=== PATIENT | male | born 1935 | race Caucasian/White ===

== ENCOUNTER → 2016-11-04 | Outpatient (CLI) | payer MEDICARE, OTHER ==
[~2016-11-04] MED LIST: ASPI1TAB69 PO; ASPI81TA82 PO; CELE200C PO; HYDR-3516 PO; HYZA100T6 PO; IRON28TA2 PO; LOSA100T2 PO; LOVA40TA PO; MAGN400T2 PO; MEVA40TA PO; REST30CA PO; TEMA30CA PO
[2016-11-04 09:26] LABS: HEMATOCRIT 41.7 % (39.0-51.0); MEAN CELL VOLUME 94.7 FL (80.0-100.0); MEAN CORPUSCULAR HEMOGLOBIN 32.1 PG (27.0-34.0); MEAN CORPUSCULAR HGB CONC 33.9 % (32.0-36.0); PLATELET COUNT 200 TH/MM3 (150-450); RED BLOOD COUNT 4.41 MIL/MM3 (4.50-5.90); RED CELL DISTRIBUTION WIDTH 12.8 % (11.6-17.2); REVIEW FLAG FINAL; WHITE BLOOD COUNT 5.6 TH/MM3 (4.0-11.0)
[2016-11-04 09:58] LABS: ALKALINE PHOSPHATASE 62 U/L (45-117); ALT (GPT) 30 U/L (12-78); ANION GAP 7 MEQ/L (5-15); AST (GOT) 21 U/L (15-37); BICARBONATE 31.3 MEQ/L (21.0-32.0); BLOOD UREA NITROGEN 19 MG/DL (7-18); CHLORIDE 103 MEQ/L (98-107); GLOMERULAR FILTRATION RATE 68 ML/MIN (>89); GLUCOSE,FASTING 103 MG/DL (74-99); HDL CHOLESTEROL 56.2 MG/DL (40.0-60.0); LDL CHOLESTEROL 62 MG/DL (0-99); LDL CHOLESTEROL DIRECT 79 MG/DL (0-99); POTASSIUM 4.4 MEQ/L (3.5-5.1); SODIUM (NA) 141 MEQ/L (136-145); TOTAL BILIRUBIN ADULT 0.7 MG/DL (0.2-1.0)
[2016-11-04 10:32] LABS: HEMOGLOBIN A1b 1.7 %; HEMOGLOBIN Ao 85.1 %; HEMOGLOBIN P3 3.8 %
== END ==
LOC: PLAB 06:42
PROVIDERS: ATTEND Family Medicine
DX: R53.83 Other fatigue (principal); E78.2 Mixed hyperlipidemia; I10 Essential (primary) hypertension; R73.01 Impaired fasting glucose
CPT/HCPCS: 36415; 80053; 80061; 83036; 83721; 84443; 85027

== ENCOUNTER 2016-12-15 09:19 | Emergency (ER) | payer MEDICARE, OTHER ==
[~2016-12-15] VITALS: Ht 172.7 cm; Wt 99.3 kg
[~2016-12-15 09:19] MED LIST changes: -ASPI1TAB69 PO; -CELE200C PO; -HYDR-3516 PO; -LOSA100T2 PO; -LOVA40TA PO; -MAGN400T2 PO; -TEMA30CA PO
[2016-12-15 09:28] VITALS: BP 138/70; PULSE 54; RESP 18; TEMP 97.5; O2SAT 98
[2016-12-15] MEDS ORDERED: TEMA30CA PO (09:42)
[2016-12-15] MEDS ORDERED: ASPI1TAB69 PO (09:42)
[2016-12-15] MEDS ORDERED: LOSA100T2 PO (09:42)
[2016-12-15] MEDS ORDERED: LOVA40TA PO (09:42)
[2016-12-15] MEDS ORDERED: MAGN400T2 PO (09:43)
--- NOTE | 2016-12-15 09:49 | PD ---
HPI Chief Complaint: Musculoskeletal Complaint Time Seen by Provider: 09:37 Travel History International Travel<30 days: No Contact w/Intl Traveler<30days: No Traveled to known affect area: No History of Present Illness HPI This 81-year-old male is complaining of pain in his left foot. He has been having the pain for several days and it seems to be getting worse. He says that last week he did a lot of work on a ladder and he is also complaining a lot of golf last few days. Yesterday he did not play golf because of the pain in his foot. He has not been on any antibiotics recently. He does have a history of a left knee replacement several years ago. 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 There is no history of trauma PFSH Past Medical History Hx Anticoagulant Therapy: Yes (ASA 81) Arthritis: Yes (currently in research program for arthritis) Cancer: Yes (COLORECTAL 1990, HAD SURGERY, MELANOMA L CHEEK) Cardiovascular Problems: No High Cholesterol: Yes Diabetes: No Diminished Hearing: No Endocrine: No Genitourinary: Yes (KIDNEY STONES) Hepatitis: No Hiatal Hernia: No Hypertension: Yes Immune Disorder: No Musculoskeletal: Yes (ARTHRITIS IN HANDS, NECK, KNEE, NECK PROBLEMS) Neurologic: No Psychiatric: No Reproductive: No Respiratory: No Thyroid Disease: No Influenza Vaccination: Yes ?: Not Past Surgical History Abdominal Surgery: Yes (PARTIAL COLECTOMY 1990) AICD: No Body Medical Devices: DENTAL IMPLANTS X 2 Eye Surgery: Yes (R EYE CATARACT REMOVAL) Genitourinary Surgery: Yes (CIRCUMCISION) Joint Replacement: Yes (left knee) Oral Surgery: Yes (TONSILLECTOMY) Pacemaker: No Other Surgery: Yes Social History Alcohol Use: Yes (2-3 wk) Tobacco Use: No Substance Use: No Allergies-Medications (Allergen,Severity, Reaction): Coded Allergies: No Known Allergies (Unverified , 12/15/16) Reported Meds & Prescriptions Reported Meds & Active Scripts Active Reported Magnesium Oxide 400 Mg Tab 400 Mg PO DAILY Lovastatin 40 Mg Tab 40 Mg PO HS Losartan-Hydrochlorothiazide 100-25 Mg Tab 1 Tab PO DAILY Temazepam 30 Mg Cap 30 Mg PO HS PRN Aspirin 81 Mg Tabdr 81 Mg PO DAILY Review of Systems General / Constitutional: No: Fever, Chills Eyes: No: Photophobia HENT: No: Headaches Cardiovascular: No: Chest Pain or Discomfort, Palpitations Respiratory: No: Cough, Shortness of Breath Gastrointestinal: No: Vomiting, Diarrhea Musculoskeletal: Positive: Myalgias, Pain Skin: Positive Lumps Physical Exam Narrative GENERAL: Well-developed male SKIN: Focused skin assessment warm/dry. HEAD: Atraumatic. Normocephalic. EYES: Pupils equal and round. No scleral icterus. No injection or drainage. ENT: No nasal bleeding or discharge. Mucous membranes pink and moist. NECK: Trachea midline. No JVD. MUSCULOSKELETAL: No obvious deformities. No clubbing. No cyanosis. No edema. The left leg as he affected extremity. There is swelling and tenderness over the superior portion of the calcaneus posteriorly in the midline. The superior portion of the Achilles tendon is not tender. There is no warmth or erythema of this area. White's test shows the Achilles to be intact NEUROLOGICAL: Awake and alert. No obvious cranial nerve deficits. Motor grossly within normal limits. Normal speech. PSYCHIATRIC: Appropriate mood and affect; insight and judgment normal. Data Data Last Documented VS Vital Signs Date Time Temp Pulse Resp B/P Pulse Ox O2 Delivery O2 Flow Rate FiO2 12/15/16 09:28 97.5 54 18 138/70 98 Orders Foot, Heel Only (Imq7ude) (12/15/16 09:44) MDM Medical Decision Making Medical Screen Exam Complete: Yes Emergency Medical Condition: Yes Medical Record Reviewed: Yes Differential Diagnosis Differential includes Achilles tendinitis, adenopathy, ruptured Achilles Narrative Course Achilles tendon appears intact as is White test is normal. An x-ray of the heel shows soft tissue thickening at the site of the Achilles insertion on the heel. There is a small plantar's further is also noted to be marked atherosclerotic disease. Impression is Achilles tendinopathy Diagnosis Primary Impression: Achilles tendinitis Qualified Code: M76.62 - Achilles tendinitis of left lower extremity Additional Instructions: Use heel lift, apply ice, follow-up with boat laborer Scripts Hydrocodone-Acetaminophen 5-325 mg Tab1 Tab PO Q6H PRN (PAIN) #30 TAB Ref 0 Prov:Mauro Delgadillo MD 12/15/16 Celecoxib (Celebrex)200 Mg [id number] Mg PO BID #30 CAP Ref 0 Prov:Mauro Delgadillo MD 12/15/16 Disposition: 01 DISCHARGE HOME Condition: Stable MacMahon,Mauro MD Dec 15, 2016 09:49
--- NOTE | 2016-12-15 10:22 | RADHPO ---
EXAM DATE/TIME: 12/15/2016 09:49 [facility] COMPARISON: No previous studies available for comparison. INDICATIONS : Left posterior heel/ankle pain & bump/swelling after frequent trips up & down a ladder. MEDICAL HISTORY : Hypercholesterolemia. Hypertension. Renal calculi. Arthritis. SURGICAL HISTORY : Tonsillectomy. Total knee replacement, left. Partial colectomy. Cataract removal. ENCOUNTER: Initial ACUITY: 4 - 6 days PAIN SCORE: 7/10 LOCATION: Left posterior heel/ankle FINDINGS: There is some soft tissue thickening and bony change at the Achilles insertion consistent with chroni c Achilles tendinopathy. There is marked atherosclerotic disease. There is a small plantar spur. CONCLUSION: Soft tissue thickening suspected enthesopathy of the Achilles insertion with marked atherosclerotic d isease. Eusebio Read MD on December 15, 2016 at 10:13 Board Certified Radiologist. This report was verified electronically.
[2016-12-15] MEDS ORDERED: HYDR-3516 PO (10:34)
[2016-12-15] MEDS ORDERED: CELE200C PO (10:34)
== END 2016-12-15 10:42 | disposition home or self-care (01) ==
LOC: PHED 09:19
DX: M76.62 Achilles tendinitis, left leg (principal); I10 Essential (primary) hypertension; E78.00 Pure hypercholesterolemia, unspecified; Z79.82 Long term (current) use of aspirin; Z96.652 Presence of left artificial knee joint
CPT/HCPCS: 73650; 99283

== ENCOUNTER 2017-04-12 09:44 | Emergency (ER) | payer MEDICARE, OTHER ==
[~2017-04-12] VITALS: Ht 172.7 cm; Wt 100.5 kg
[~2017-04-12 09:44] MED LIST changes: +ASPI1TAB69 PO; -ASPI81TA82 PO; +CELE200C PO; +HYDR-3516 PO; -HYZA100T6 PO; -IRON28TA2 PO; +LOSA100T2 PO; +LOVA40TA PO; +MAGN400T2 PO; -MEVA40TA PO; -REST30CA PO; +TEMA30CA PO
[2017-04-12 09:53] VITALS: BP 178/74; PULSE 79; RESP 16; TEMP 98.2; O2SAT 94
[2017-04-12 11:15] VITALS: O2SAT 98
[2017-04-12] MEDS ORDERED: ASPI81CH CHEW (11:19)
--- NOTE | 2017-04-12 11:49 | PD ---
HPI Chief Complaint: Skin Problem Time Seen by Provider: 11:38 Travel History International Travel<30 days: No Contact w/Intl Traveler<30days: No Traveled to known affect area: No History of Present Illness HPI This 81-year-old male is noted a lump on his right breast for the last couple of days. There's been no fever or chills. There is no history of trauma. He does not recall seeing this before. PFSH Past Medical History Hx Anticoagulant Therapy: Yes (ASA 81) Arthritis: Yes (currently in research program for arthritis) Cancer: Yes (COLORECTAL 1990, HAD SURGERY, MELANOMA L CHEEK) Cardiovascular Problems: No High Cholesterol: Yes Diabetes: No Diminished Hearing: No Endocrine: No Gastrointestinal Disorders: No Genitourinary: Yes (KIDNEY STONES) Hepatitis: No Hiatal Hernia: No Hypertension: Yes Immune Disorder: No Medical other: No Musculoskeletal: Yes (ARTHRITIS IN HANDS, NECK, KNEE, NECK PROBLEMS) Neurologic: No Psychiatric: No Reproductive: No Respiratory: No Thyroid Disease: No Past Surgical History Abdominal Surgery: Yes (PARTIAL COLECTOMY 1990) AICD: No Body Medical Devices: DENTAL IMPLANTS X 2 Eye Surgery: Yes (R EYE CATARACT REMOVAL) Genitourinary Surgery: Yes (CIRCUMCISION) Joint Replacement: Yes (left knee) Oral Surgery: Yes (TONSILLECTOMY) Pacemaker: No Other Surgery: Yes Social History Alcohol Use: Yes (2-3 wk) Tobacco Use: No Substance Use: No Allergies-Medications (Allergen,Severity, Reaction): Coded Allergies: No Known Allergies (Unverified , 12/15/16) Reported Meds & Prescriptions Reported Meds & Active Scripts Active Hydrocodone-Acetaminophen 5-325 mg Tab 1 Tab PO Q6H PRN Reported Aspirin 81 Mg Chew 81 Mg CHEW DAILY Lovastatin 40 Mg Tab 40 Mg PO HS Losartan-Hydrochlorothiazide 100-25 Mg Tab 1 Tab PO DAILY Temazepam 30 Mg Cap 30 Mg PO HS PRN Review of Systems General / Constitutional: No: Fever, Chills Eyes: No: Diploplia, Blurred Vision Cardiovascular: No: Chest Pain or Discomfort Respiratory: No: Cough Physical Exam Narrative GENERAL: Well-developed male SKIN: Focused skin assessment warm/dry. HEAD: Atraumatic. Normocephalic. EYES: Pupils equal and round. No scleral icterus. No injection or drainage. ENT: No nasal bleeding or discharge. Mucous membranes pink and moist. NECK: Trachea midline. No JVD. MUSCULOSKELETAL: No obvious deformities. No clubbing. No cyanosis. No edema. On the volar aspect of the right wrist is a smooth compressible swollen area about a centimeter in diameter. Does have the consistency of a ganglion cyst. PSYCHIATRIC: Appropriate mood and affect; insight and judgment normal. Data Data Last Documented VS Vital Signs Date Time Temp Pulse Resp B/P Pulse Ox O2 Delivery O2 Flow Rate FiO2 04/12/17 11:15 98 Room Air 04/12/17 09:53 98.2 79 16 178/74 [facility] Medical Decision Making Medical Screen Exam Complete: Yes Emergency Medical Condition: Yes Medical Record Reviewed: Yes Differential Diagnosis Differential includes contusion, ganglion cyst Narrative Course History and exam is consistent with a ganglion cyst. I have advised the patient that he follow up with hand surgery if this bothering him Diagnosis Primary Impression: Ganglion cyst Additional Instructions: Follow-up with hand surgery if symptoms persist Disposition: 01 DISCHARGE HOME Condition: Stable Mauro Delgadillo MD Apr 12, 2017 11:49
== END 2017-04-12 12:17 | disposition home or self-care (01) ==
LOC: PHED 09:44
DX: M67.431 Ganglion, right wrist (principal); I10 Essential (primary) hypertension; E78.00 Pure hypercholesterolemia, unspecified; Z79.82 Long term (current) use of aspirin; Z87.39 Personal history of other diseases of the musculoskeletal system and connective tissue; Z85.038 Personal history of other malignant neoplasm of large intestine; Z85.828 Personal history of other malignant neoplasm of skin; Z87.442 Personal history of urinary calculi
CPT/HCPCS: 99281

== ENCOUNTER → 2017-05-10 | Outpatient (CLI) | payer MEDICARE, OTHER ==
[~2017-05-10] MED LIST changes: -ASPI1TAB69 PO; +ASPI81CH CHEW; -CELE200C PO; -MAGN400T2 PO
[2017-05-10 09:15] LABS: HEMATOCRIT 42.9 % (39.0-51.0); MEAN CELL VOLUME 95.9 FL (80.0-100.0); MEAN CORPUSCULAR HEMOGLOBIN 31.9 PG (27.0-34.0); MEAN CORPUSCULAR HGB CONC 33.3 % (32.0-36.0); PLATELET COUNT 221 TH/MM3 (150-450); RED BLOOD COUNT 4.48 MIL/MM3 (4.50-5.90); RED CELL DISTRIBUTION WIDTH 12.8 % (11.6-17.2); REVIEW FLAG FINAL; WHITE BLOOD COUNT 7.1 TH/MM3 (4.0-11.0)
[2017-05-10 09:37] LABS: ANION GAP 8 MEQ/L (5-15); BICARBONATE 29.8 MEQ/L (21.0-32.0); BLOOD UREA NITROGEN 14 MG/DL (7-18); CHLORIDE 103 MEQ/L (98-107); GLOMERULAR FILTRATION RATE 79 ML/MIN (>89); GLUCOSE,FASTING 100 MG/DL (74-99); SODIUM (NA) 141 MEQ/L (136-145)
[2017-05-10 09:38] LABS: AST (GOT) 13 U/L (15-37)
[2017-05-10 09:41] LABS: ALKALINE PHOSPHATASE 64 U/L (45-117); ALT (GPT) 21 U/L (12-78); HDL CHOLESTEROL 57.4 MG/DL (40.0-60.0); LDL CHOLESTEROL 64 MG/DL (0-99); LDL CHOLESTEROL DIRECT 77 MG/DL (0-99); TOTAL BILIRUBIN ADULT 0.6 MG/DL (0.2-1.0)
[2017-05-10 10:24] LABS: HEMOGLOBIN A1a 1.1 %; HEMOGLOBIN A1b 1.9 %; HEMOGLOBIN Ao 84.8 %; HEMOGLOBIN P3 3.8 %
== END ==
LOC: PLAB 07:07
PROVIDERS: ATTEND Family Medicine
DX: E78.2 Mixed hyperlipidemia (principal); I10 Essential (primary) hypertension; R73.01 Impaired fasting glucose
CPT/HCPCS: 36415; 80053; 80061; 83036; 83721; 85027

== ENCOUNTER → 2017-11-07 | Outpatient (CLI) | payer MEDICARE, OTHER ==
[~2017-11-07] MED LIST changes: +ASPI-516 CHEW; -ASPI81CH CHEW
[2017-11-07 11:35] LABS: HEMATOCRIT 42.6 % (39.0-51.0); HEMOGLOBIN 14.6 GM/DL (13.0-17.0); MEAN CELL VOLUME 94.6 FL (80.0-100.0); MEAN CORPUSCULAR HEMOGLOBIN 32.5 PG (27.0-34.0); MEAN CORPUSCULAR HGB CONC 34.3 % (32.0-36.0); MEAN PLATELET VOLUME 7.9 FL (7.0-11.0); PLATELET COUNT 239 TH/MM3 (150-450); RED CELL DISTRIBUTION WIDTH 13.2 % (11.6-17.2); WHITE BLOOD COUNT 9.7 TH/MM3 (4.0-11.0)
[2017-11-07 11:50] LABS: ALBUMIN 3.8 GM/DL (3.4-5.0); ALT (GPT) 24 U/L (12-78); AST (GOT) 14 U/L (15-37); BICARBONATE 30.8 MEQ/L (21.0-32.0); BLOOD UREA NITROGEN 16 MG/DL (7-18); CALCIUM 8.8 MG/DL (8.5-10.1); CHLORIDE 106 MEQ/L (98-107); CHOLESTEROL 135 MG/DL (120-200); CREATININE 0.97 MG/DL (0.60-1.30); GLOMERULAR FILTRATION RATE 74 ML/MIN (>89); GLUCOSE,FASTING 100 MG/DL (74-99); SODIUM (NA) 142 MEQ/L (136-145); TRIGLYCERIDES 72 MG/DL (42-150)
[2017-11-07 11:52] LABS: ALKALINE PHOSPHATASE 61 U/L (45-117); CHOLESTEROL/ HDL RATIO 2.52 RATIO; HDL CHOLESTEROL 53.5 MG/DL (40.0-60.0); LDL CHOLESTEROL 67 MG/DL (0-99); LDL CHOLESTEROL DIRECT 76 MG/DL (0-99); TOTAL BILIRUBIN ADULT 0.6 MG/DL (0.2-1.0)
== END ==
LOC: PLAB 07:15
PROVIDERS: ATTEND Family Medicine
DX: E11.9 Type 2 diabetes mellitus without complications (principal); E78.2 Mixed hyperlipidemia; I10 Essential (primary) hypertension
CPT/HCPCS: 36415; 80053; 80061; 83036; 83721; 85027